=== PATIENT | female | born 1985 | race Caucasian/White ===

== ENCOUNTER 2020-01-10 23:00 | Outpatient (CLI) | payer OTHER, SELFPAY ==
[2020-01-10 23:18] VITALS: BP 116/68; PULSE 74; TEMP 36.6
[2020-01-10 23:45] VITALS: BMI 27.9
--- NOTE | 2020-01-11 11:55 | OB.TRI.NOTE ---
History of Present Illness Date of Service: 01/10/20 Was patient seen by the physician?: No Reason For Visit: R/O LABOR Date of Service: 01/10/20 Final BRYN: 01/18/20 Gestational age: 36 6/7 weeks Allergies amoxicillin Allergy (Verified 01/10/20 23:47) Rash Physical Exam Vitals: Vital Signs Temp Pulse BP 97.9 F 74 116/68 01/10/20 23:18 01/10/20 23:18 01/10/20 23:18 NST - FHR Rate Baby A Baseline: 130 Variability:: Moderate Accelerations:: 15 x 15 Decelerations:: None NST Reactive:: Yes FHR Category:: Category I - for 20 min before d/c Uterine Activity:: irreg ctxs Impression/Plan 34 YOF high risk multigravida, advanced maternal age. False labor. F/u as needed or as scheduled.
== END 2020-01-11 01:00 | disposition home or self-care (01) ==
LOC: WPOUT 23:03 → OBT 23:04
PROVIDERS: Visit Provider Advanced Practice Midwife
DX: O47.03 False labor before 37 completed weeks of gestation, third trimester (principal); O09.523 Supervision of elderly multigravida, third trimester; Z3A.36 36 weeks gestation of pregnancy
CPT/HCPCS: 59025; 59050; 99218; G0378

== ENCOUNTER 2020-01-12 06:57 | Inpatient (IN) | payer OTHER, SELFPAY ==
[2020-01-12] VITALS (45 sets, daily range): BP systolic 88–120; BP diastolic 51–72; PULSE 51–84; RESP 16; TEMP 36.7–37; O2SAT 89–100; BMI 28.1
[2020-01-12] MEDS: Lactated Ringers 1,000 ML 50 ML IV (07:30)
[2020-01-12] MEDS: Oxytocin 30 units/NS 500 ml 30 UNITS/500 ML IV.SOLN IV (07:57)
[2020-01-12 08:11] LABS: Absolute Lymphocyte Count 1.74 X10^3/uL (0.83-4.51); Absolute Neutrophil Count 3.9 X10^3/uL (2.0-7.7); Basophil# 0.04 X10^3/uL; Basophil% 0.6 % (0-1); Eosinophil# 0.05 X10^3/uL; Eosinophils% 0.8 % (0-5); Hematocrit 34.3 % (37-47); Hemoglobin 11.6 g/dL (12.0-15.0); Lymphocyte # 1.74 X10^3/ul (4.0); Lymphocyte % 27.5 % (19-41); Mean Corp Hgb Conc 33.8 g/dL (32-36); Mean Corpuscular Hgb 30.8 pg (27.0-32.0); Mean Platelet Vol. 10.2 fl (6.2-12.0); Monocyte# 0.56 X10^3/uL; Monocyte% 8.9 % (0-10); NRBC Flagged by Analyzer 0 % (0-5); Neutrophil # 3.92 X10^3/uL (2.7-7.7); Platelet Count 159 K/mm3 (150-450); RBC Distribution Width CV 13.2 % (11.6-14.6); Red Blood Count 3.77 M/mm3 (4.2-5.4); White Blood Count 6.3 K/mm3 (4.4-11.0)
--- NOTE | 2020-01-12 09:51 | NURSING ---
pt. has living will and healthcare power of staff attorney, her jaylin is poa and has both documents available on his lap top
--- NOTE | 2020-01-12 10:07 | PCM.HP.OB ---
History Date of Admission: 01/12/20 Final BRYN: 01/18/20 Gestational age: 39 Weeks and 1 Days History of this : This is a 34 year-old, G [], P [], at 39 weeks gestational age. Allergies amoxicillin Allergy (Verified 01/10/20 23:47) Rash Home Medications: Home Medications Colace 1 tab PO DAILY 01/10/20 Pnv 102/Iron/Folate/Dha 1 tab PO DAILY 01/10/20 Smoking Status: Never smoker History Past Pregnancies: Past Pregnancies Delivery Date Name GA/ Weeks Outcome Route Wt Sex Labor Length Anesthesia Delivery Location Provider FOB Labs: See [facility] & records from [place] Physical Exam Vitals: Vital Signs Temp Pulse BP Pulse Ox 98.6 F 68 98/53 L 96 01/12/20 10:00 01/12/20 10:00 01/12/20 10:00 01/12/20 07:21 General: Alert, Oriented x3 Abdomen: Soft, Non Tender, Non-Distended, Gravid Neurological: Cranial nerves II-XII grossly intact FERMENTATION SCIENTIST: Normal external genitalia Estimated gestational size: Appropriate for gestational size Presentation: Cephalic Cervix Dilation (cm): 4 - AROM clear fluid Station: -2 Effacement (%): 70 Assessment/Plan This is a 34 year-old, , at 39 weeks gestational age. Admit to L&D Elective induction - on pitocin, s/p AROM GBS negative EFW - less than 4500g, patient with adequate pelvis Routine care
[2020-01-12] MEDS: Lactated Ringers 500 ML 999 ML IV ×2 (12:40→13:55)
[2020-01-12] MEDS: fentaNYL-bupivacaine (epidural) 100 ML BAG EPIDURAL (13:54)
[2020-01-12] MEDS: Oxytocin 30 units/NS 500 ml 30 UNITS/500 ML IV.SOLN 334 UNITS IV (15:34)
[2020-01-12] MEDS: Methylergonovine 0.2 MG/ML Ampul IM (16:00)
--- NOTE | 2020-01-12 16:06 | PCM.OPRPT ---
Vaginal Delivery Maternal Presentation: Elective Induction Method of Induction: Pitocin, Amniotomy Amniotic Membrane Rupture Type: Artificial Amniotic Fluid Description: Clear Final BRYN: 01/18/20 Gestational age: 39 Weeks and 1 Days Date of Procedure: 01/12/20 Pre-Operative Diagnosis: Elective induction Post-Operative Diagnosis: Same Surgery/ Procedure Performed: Spontaneous Vaginal Delivery Type of Anesthesia: Epidural Description of Procedure: Patient prepped & stirrups when C/C/+2. She pushed to deliver the head. Shoulders & body easily followed. placed on maternal abdomen where 3VC clamped & cut in delayed fashion. Placenta delivered with gentle traction. Good uterine tone obtained. Presentation: LOP Placental Delivery Description: Spontaneous Placenta Disposition: [facility] Cord Vessel Description: 3 Vessels Cord Entanglement: None Drain: Mendoza to straight drain Estimated Blood Loss: 300ml A gender: Female - Sofiya (1 minute): 9 (5 minute): 9 Episiotomy Description: None Laceration: None Medications given after delivery: IV Pitocin Complications: None
[2020-01-12] MEDS: 0.9% Saline Lock 10 ML Syringe IV (18:09)
--- NOTE | 2020-01-12 21:20 | NURSING ---
2014 Assisted pt upto BR for first post delivery. Pt tolerated well, educated pt on pericare, emptying bladder and s/s to report
[2020-01-12] MEDS: Ibuprofen 600 MG Tablet PO (22:00)
[2020-01-13] VITALS (9 sets, daily range): BP systolic 97–114; BP diastolic 54–73; PULSE 60–72; RESP 16; TEMP 36.4–37; O2SAT 97
[2020-01-13] MEDS: Ibuprofen 600 MG Tablet PO ×2 (05:00→11:06)
--- NOTE | 2020-01-13 15:41 | DCINST_ITS ---
Discharge Diet: No Restrictions Discharge Activity: May Drive, May Shower May resume sexual activity in: 6 weeks Weight Bearing Status: Weight bearing as tolerated Additional Instructions: If you experience any of the following, contact your healthcare provider. * Bleeding that soaks a pad every hour for 2 hours * Fever 100.4 or higher * Unrelieved incision or abdominal pain * Swelling, redness, discharge or bleeding from your incision or episiotomy site * Your incision begins to separate * Problems urinating (including inability to urinate or burning while urinating). * Visual changes * Severe headache * Flu-like symptoms * Pain or redness in one of both of your breasts * Pain, warmth, tenderness or swelling in your legs, especially the calf area * Frequent nausea and vomiting * Symptoms of depression or anxiety If you experience any of the following, call 911 or go to the nearest Emergency Room. * Chest pain * Problems breathing * Seizure activity * Partial or complete paralysis of a body part, slurred speech, weakness or drooping of the face, or a sudden inability to walk or hold your balance Allergies/Adverse Reactions: Allergies amoxicillin Allergy (Verified 01/10/20 23:47) Rash Medications to take at Discharge Colace 1 tab PO DAILY 01/10/20 Pnv 102/Iron/Folate/Dha 1 tab PO DAILY 01/10/20 Acetaminophen [Tylenol] 1,000 mg PO Q8H PRN PRN tab 01/13/20 Ibuprofen [Motrin] 600 mg PO Q6H PRN PRN tab 01/13/20 Primary Care Physician: Care Physician,No Primary [Primary Care Provider] - Test Results: Test results from this visit will be discussed in further detail at your follow- up appointment, if applicable.
--- NOTE | 2020-01-13 15:41 | PCM.DCVAG ---
Discharge Diet: No Restrictions Discharge Activity: May Drive, May Shower May resume sexual activity in: 6 weeks Weight Bearing Status: Weight bearing as tolerated Additional Instructions: If you experience any of the following, contact your healthcare provider. Bleeding that soaks a pad every hour for 2 hours Fever 100.4 or higher Unrelieved incision or abdominal pain Swelling, redness, discharge or bleeding from your incision or episiotomy site Your incision begins to separate Problems urinating (including inability to urinate or burning while urinating). Visual changes Severe headache Flu-like symptoms Pain or redness in one of both of your breasts Pain, warmth, tenderness or swelling in your legs, especially the calf area Frequent nausea and vomiting Symptoms of depression or anxiety If you experience any of the following, call 911 or go to the nearest Emergency Room. Chest pain Problems breathing Seizure activity Partial or complete paralysis of a body part, slurred speech, weakness or drooping of the face, or a sudden inability to walk or hold your balance Allergies/Adverse Reactions: Allergies amoxicillin Allergy (Verified 01/10/20 23:47) Rash Medications to take at Discharge Colace 1 tab PO DAILY 01/10/20 Pnv 102/Iron/Folate/Dha 1 tab PO DAILY 01/10/20 Acetaminophen [Tylenol] 1,000 mg PO Q8H PRN PRN tab 01/13/20 Ibuprofen [Motrin] 600 mg PO Q6H PRN PRN tab 01/13/20 Primary Care Physician: Care Physician,No Primary [Primary Care Provider] - Test Results: Test results from this visit will be discussed in further detail at your follow-up appointment, if applicable.
--- NOTE | 2020-01-13 15:42 | PCM.PN.OB ---
Subjective: No complaints - Physical Exam Vitals/I&O's: Vital Signs Temp Pulse Resp BP Pulse Ox 98.6 F 68 16 109/60 97 01/13/20 15:35 01/13/20 15:35 01/13/20 15:35 01/13/20 15:35 01/13/20 15:35 Oxygen Delivery Method Room Air Weight: 196 lb Body Mass Index (BMI) 28.1 Intake and Output for Last 24 Hours 01/11/20 01/12/20 01/13/20 23:59 23:59 23:59 Intake Total 2165.46 / 2165.46 Output Total 3300 / 3300 Balance -1134.54 / -1134.54 General: Alert, Oriented x3 Abdomen: Soft, Non Tender, Non-Distended - ff mid & below umb Extremities: No Calf Tenderness Laboratory Results 01/12/20 17:05: Screen NEGATIVE, Baby's Blood Type O POSITIVE, Baby's CHRISTINA NEGATIVE Current Medications Acetaminophen (Tylenol) 1,000 mg PO Q8H PRN PRN PRN Reason: Pain Score 1-3/10 Bisacodyl (Dulcolax) 10 mg RECTAL UD PRN PRN Reason: If no BM Dibucaine (Dibucaine) 1 applic TOPICAL TID PRN PRN; Protocol PRN Reason: Discomfort Hydrocortisone (Hytone) 1 applic TOPICAL TID PRN PRN; Protocol PRN Reason: Discomfort Ibuprofen (Motrin) 600 mg PO Q6H PRN PRN PRN Reason: Pain Score 1-3/10 Last Admin: 01/13/20 11:06 Dose: 600 mg Documented by: Methylergonovine Maleate (Methergine) 0.2 mg IM X1 PRN PRN Reason: Excess bleeding/uterine atony Last Admin: 01/12/20 16:00 Dose: 0.2 mg Documented by: Ondansetron HCl (Zofran) 4 mg IV Q4H PRN PRN PRN Reason: Nausea Oxycodone HCl (Oxyir) 5 - 10 mg PO Q4H PRN PRN PRN Reason: Pain Score 4-10/10 Senna/Docusate Sodium (Senokot-S, Tatyana-Colace) 1 - 2 tablet PO DAILY PRN PRN PRN Reason: Constipation Simethicone (Mylicon) 80 mg PO PCHS PRN PRN Reason: Indigestion/Stomach pain Sodium Chloride () 5 - 15 ml IV UD PRN PRN Reason: SALINE FLUSH Last Admin: 01/12/20 18:09 Dose: 10 ml Documented by: Medical Necessity - Tobacco Use Smoking Status: Never smoker Assessment/Plan PPD#1 D/c home
== END 2020-01-13 17:10 | disposition home or self-care (01) | DRG 807 ==
PROVIDERS: Admitting Provider Obstetrics & Gynecology; Referring Provider Obstetrics & Gynecology; Visit Provider Obstetrics & Gynecology
DX: O80 Encounter for full-term uncomplicated delivery (principal); Z37.0 Single live birth; Z3A.39 39 weeks gestation of pregnancy
CPT/HCPCS: 59025; 59050; 85025; 85461; 86850; 86870; 86900; 86901; 90384; 99218; J7120; A4216; G0378; J2790